=== PATIENT | female | born 1970 | race Caucasian/White ===

== ENCOUNTER 2017-10-08 13:55 | Emergency (ER) | payer OTHER ==
[~2017-10-08] VITALS: Ht 152.4 cm; Wt 75.9 kg
[2017-10-08 14:09] VITALS: TEMP 37.1; O2SAT 98; Ht 152.4 cm; Wt 75.9 kg
[2017-10-08] MEDS ORDERED: SODIUM CHLORIDE 0.9% 1000ML 1,000 ML IV STA (14:40)
[2017-10-08 15:19] LABS: BASO % 0.5 %; BASO ABS # 0.05 K/uL (0-0.2); EOS % 3.8 %; EOS ABS # 0.36 K/uL (0-0.5); HEMATOCRIT 36.4 % (37-47); HEMOGLOBIN 12.4 g/dL (12.0-16.0); IG# 0.01 K/uL (0.00-0.02); LYMPH % 27.7 %; MEAN CELL VOLUME 88.1 fL (80-100); MEAN CORPUSCULAR HGB CONC 34.1 g/dl (32-36); MEAN PLATELET VOLUME 9.8 fL (7.4-10.4); MONO % 6.6 %; MONO ABS # 0.62 K/uL (0.11-0.59); NEUT % 61.3 %; NEUT ABS # 5.75 K/uL (1.4-6.5); PLATELET COUNT 403 K/uL (130-400); RED CELL DISTRIBUTION WIDTH CV 13.4 % (11.5-14.5); RED CELL DISTRIBUTION WIDTH SD 43.3 fL (36.4-46.3); WHITE BLOOD COUNT 9.39 K/uL (4.8-10.8)
[2017-10-08 15:21] LABS: ALBUMIN 4.1 gm/dl (3.4-5.0); ALT/SGPT 20 U/L (12-78); BLOOD UREA NITROGEN 20 mg/dl (7-18); CALCIUM 8.8 mg/dl (8.5-10.1); CARBON DIOXIDE 23 mmol/L (21-32); CREATININE 1.37 mg/dl (0.60-1.20); GLUCOSE 101 mg/dl (70-99); POTASSIUM 3.2 mmol/L (3.5-5.1); SODIUM 136 mmol/L (136-145)
--- NOTE | 2017-10-08 15:24 | DIAGNOSTIC IMAGING REPORT ---
CHEST ONE VIEW PORTABLE CLINICAL HISTORY: Syncope COMPARISON STUDY: No previous studies for comparison. FINDINGS: The cardiac and mediastinal contours are normal. There is no evidence of focal pulmonary consolidation. There is no evidence of failure. No pleural effusions are visualized.[ IMPRESSION: No active disease in the chest. Electronically signed by: Narayan Daniel M.D. 10/08/2017 3:23 PM Dictated Date/Time: 10/08/2017 3:22 PM
[2017-10-08 15:26] LABS: ALKALINE PHOSPHATASE 63 U/L (45-117); AST/SGOT 13 U/L (15-37); TOTAL PROTEIN 7.9 gm/dl (6.4-8.2)
[2017-10-08] MEDS ORDERED: SUMA50TA15 PO (15:36)
[2017-10-08] MEDS ORDERED: HYDR25TA4 PO (15:36)
[2017-10-08] MEDS ORDERED: TOPI50TA16 PO (15:36)
[2017-10-08] MEDS ORDERED: ASPI-390 PO (15:36)
[2017-10-08] MEDS ORDERED: MAGNESIUM OXIDE 400 MG TAB PO STA (16:35)
[2017-10-08] MEDS ORDERED: POTASSIUM CHLORIDE 20 MEQ TABCR PO STA (16:35)
--- NOTE | 2017-10-08 16:38 | EMERGENCY ROOM VISIT NOTE ---
History First contact with patient: 14:23 Chief Complaint: SYNCOPE Stated Complaint: SYNCOPE Nursing Triage Summary: Pt arrives by ALS for syncopal episode while at work. pt reports that she was ambulating, started to see spots, eased herself to the floor and then passed out. denies injury. reports a headache, dizziness and nausea. Hx of Migraines and HTN History of Present Illness The patient is a 47 year old female who presents to the Emergency Room with complaints of a syncopal episode. The patient states that she was at work and was walking and began to not feel well. She reports that she began to see spots and felt like she was going to pass out. She sat down and did not remember what happened after that. Coworkers who witnessed her told her that she passed out. She states that when she came to, she was sweaty and clammy. She reports she has a mild headache and nausea at this time. She does have a history of migraine headaches and states that her headache now is much more mild than her migraines. This headache developed after the syncopal episode. She states that her blood pressure medications were recently changed. She was previously taking only hydrochlorothiazide, however her primary care provider added lisinopril approximately 1 week ago. The patient does admit that over the past week, she has had a few more episodes of becoming dizzy, lightheaded and feeling like she was going to pass out. This is the first time she has had a syncopal episode. The patient does admit that she did not eat anything for breakfast prior to going to work today. She denies any chest pain, shortness of breath or palpitations associated with the event. Review of Systems A complete 10 point review of systems was reviewed with the patient with pertinent positives and negatives as per history of present illness. All else were negative. Past Medical/Surgical History Medical Problems: (1) Hypertension (2) Migraines Social History Smoking Status: Never Smoker Marital Status: Housing Status: lives with family Occupation Status: employed Current/Historical Medications Scheduled Ejjtzkc-Rxihyzvqbsieu-Tkgikvev (Excedrin Migraine), 2-4 TABS PO PRN UD Hydrochlorothiazide (Hctz), 25 MG PO DAILY Sumatriptan Succinate (Imitrex), 50 MG PO PRN Topiramate (Topamax), 50 MG PO HS Physical Exam Vital Signs Date Time Temp Pulse Resp B/P (MAP) Pulse Ox O2 Delivery O2 Flow Rate FiO2 10/08/17 17:14 87 14 146/103 97 10/08/17 17:12 87 16 146/103 97 Room Air 10/08/17 16:09 77 16 140/90 100 Room Air 10/08/17 14:57 74 20 124/89 100 Room Air 10/08/17 14:53 81 16 161/98 100 Room Air 82 152/88 90 124/89 10/08/17 14:18 75 10/08/17 14:09 37.1 76 18 136/81 98 Room Air 10/08/17 14:09 98 Room Air Physical Exam VITALS: Vitals are noted on the nurse's note and reviewed by myself. Vital signs stable. GENERAL: This is a 47-year-old female, in no acute distress, nondiaphoretic, well-developed well-nourished. SKIN: The skin was without rashes. HEAD: Normocephalic atraumatic. EARS: External auditory canals clear, tympanic membranes pearly [place] without erythema or effusion bilaterally. EYES: Pupils equal round and reactive to light and accommodation. Extraocular movements intact. MOUTH: Mucous membranes moist. Tonsils are not enlarged. Pharynx without erythema or exudate. NECK: Supple without nuchal rigidity. Cervical spine is nontender. HEART: Regular rate and rhythm without murmurs gallops or rubs. LUNGS: Clear to auscultation bilaterally without wheezes, rales or rhonchi. No retractions or accessory muscle use. MUSCULOSKELETAL: Strength 5/5 throughout. NEURO: Patient was alert and oriented to person place and time. No focal neurological deficits. Medical Decision & Procedures ER Provider Diagnostic Interpretation: CHEST ONE VIEW PORTABLE CLINICAL HISTORY: Syncope COMPARISON STUDY: No previous studies for comparison. FINDINGS: The cardiac and mediastinal contours are normal. There is no evidence of focal pulmonary consolidation. There is no evidence of failure. No pleural effusions are visualized.[ IMPRESSION: No active disease in the chest. Laboratory Results 10/08/17 13:27 Red Blood Count 4.13, Mean Corpuscular Volume 88.1, Mean Corpuscular Hemoglobin 30.0, Mean Corpuscular Hemoglobin Concent 34.1, Mean Platelet Volume 9.8, Neutrophils (%) (Auto) 61.3, Lymphocytes (%) (Auto) 27.7, Monocytes (%) (Auto) 6.6, Eosinophils (%) (Auto) 3.8, Basophils (%) (Auto) 0.5, Neutrophils # (Auto) 5.75, Lymphocytes # (Auto) 2.60, Monocytes # (Auto) 0.62, Eosinophils # (Auto) 0.36, Basophils # (Auto) 0.05 10/08/17 13:27 Test 10/08/17 13:27 10/08/17 14:15 White Blood Count 9.39 K/uL (4.8-10.8) Red Blood Count 4.13 M/uL (4.2-5.4) Hemoglobin 12.4 g/dL (12.0-16.0) Hematocrit 36.4 % (37-47) Mean Corpuscular Volume 88.1 fL (80-100) Mean Corpuscular Hemoglobin 30.0 pg (25-34) Mean Corpuscular Hemoglobin Concent 34.1 g/dl (32-36) Platelet Count 403 K/uL (130-400) Mean Platelet Volume 9.8 fL (7.4-10.4) Neutrophils (%) (Auto) 61.3 % Lymphocytes (%) (Auto) 27.7 % Monocytes (%) (Auto) 6.6 % Eosinophils (%) (Auto) 3.8 % Basophils (%) (Auto) 0.5 % Neutrophils # (Auto) 5.75 K/uL (1.4-6.5) Lymphocytes # (Auto) 2.60 K/uL (1.2-3.4) Monocytes # (Auto) 0.62 K/uL (0.11-0.59) Eosinophils # (Auto) 0.36 K/uL (0-0.5) Basophils # (Auto) 0.05 K/uL (0-0.2) RDW Standard Deviation 43.3 fL (36.4-46.3) RDW Coefficient of Variation 13.4 % (11.5-14.5) Immature Granulocyte % (Auto) 0.1 % Immature Granulocyte # (Auto) 0.01 K/uL (0.00-0.02) Anion Gap 10.0 mmol/L (3-11) Est Creatinine Clear Calc Drug Dose 45.7 ml/min Estimated GFR () 52.7 Estimated GFR (Non- 45.5 BUN/Creatinine Ratio 14.5 (10-20) Calcium Level 8.8 mg/dl (8.5-10.1) Total Bilirubin 0.3 mg/dl (0.2-1) Aspartate Amino Transf (AST/SGOT) 13 U/L (15-37) Alanine Aminotransferase (ALT/SGPT) 20 U/L (12-78) Alkaline Phosphatase 63 U/L (45-117) Troponin I < 0.015 ng/ml (0-0.045) Total Protein 7.9 gm/dl (6.4-8.2) Albumin 4.1 gm/dl (3.4-5.0) Globulin 3.8 gm/dl (2.5-4.0) Albumin/Globulin Ratio 1.1 (0.9-2) Urine Color YELLOW Urine Appearance CLEAR (CLEAR) Urine pH 5.0 (4.5-7.5) Urine Specific [place] 1.027 (1.000-1.030) Urine Protein NEG (NEG) Urine Glucose (UA) NEG (NEG) Urine Ketones 1+ (NEG) Urine Occult Blood TRACE (NEG) Urine Nitrite NEG (NEG) Urine Bilirubin NEG (NEG) Urine Urobilinogen NEG (NEG) Urine Leukocyte Esterase NEG (NEG) Urine WBC (Auto) 1-5 /hpf (0-5) Urine RBC (Auto) 0-4 /hpf (0-4) Urine Hyaline Casts (Auto) 10-30 /lpf (0-5) Urine Epithelial Cells (Auto) >30 /lpf (0-5) Urine Bacteria (Auto) 1+ (NEG) Urine Test NEG (NEG) Medications Administered Medications (Trade) Dose Ordered Sig/Wilder Route Start Time Stop Time Status Last Admin Dose Admin Sodium Chloride 1,000 ml @ 999 mls/hr Q1H1M STAT IV 10/08/17 14:40 10/08/17 15:40 DC 10/08/17 14:56 999 MLS/HR Potassium Chloride (Klor-Con Tab) 40 meq NOW STAT PO 10/08/17 16:35 10/08/17 16:37 DC 10/08/17 16:56 40 MEQ Magnesium Oxide (Mag-Ox Tab) 800 mg NOW STAT PO 10/08/17 16:35 10/08/17 16:37 DC 10/08/17 16:56 800 MG ECG Per My Interpretation Indication: syncope Rate (beats per minute): 71 Rhythm: normal sinus Findings: no acute ischemic change, prolonged QT, no ectopy Comparison ECG Date: no prior available ED Course The patient was evaluated as above. Labs were drawn and IV access was obtained. Patient was medicated with 1 L normal saline solution. Patient was reevaluated and was feeling well. Findings were discussed with the patient. Patient was medicated with potassium and magnesium orally. Discharge instructions were reviewed with the patient. The patient verbalized understanding of my assessment and treatment plan and was discharged home in good condition. Medical Decision Differential diagnosis includes arrhythmia, cardiogenic syncope, vasovagal syncope, dehydration, electrolyte abnormalities, among others. The patient is a 47-year-old female who presents today complaining of a syncopal event. Patient has a mild headache at this time but is otherwise asymptomatic. Vital signs stable through the emergency department stay. Labs revealed no leukocytosis or concerning anemia. Creatinine/BUN were mildly elevated and ketones were present in the urine, suggesting dehydration. Potassium was slightly low and was repleted orally. EKG shows a normal sinus rhythm with mildly prolonged QT and no ischemic changes or ectopy. Patient's orthostatic vital signs were positive. She was recently placed on lisinopril and it is possible that this is causing some mild hypotension for her. She has had a few episodes of presyncopal symptoms this week. Patient was advised to hold the lisinopril until follow-up with her primary care provider. She was hydrated with normal saline solution in the ER and advised to increase fluids at home. She was advised to follow-up with her primary care provider within 48 hours for recheck. She was informed that she should return here immediately with any worsening or new/concerning symptoms. The patient's case was reviewed with Dr. Higuera, ED attending physician, who agreed with my assessment and treatment plan. Based on the patient's presentation and work up, I feel the patient is stable for outpatient treatment. The patient was educated to return to the emergency department for any worsening of their current condition or new/concerning symptoms. She will follow up with her PCP. Medication Reconcilliation Current Medication List: was personally reviewed by me Blood Pressure Screening Patient's blood pressure: Elevated blood pressure Blood pressure disposition: Elevated BP felt to be situational, Referred to PCP Impression Primary Impression: Syncope Departure Information Dispostion Home / Self-Care Condition GOOD Referrals Pankaj Duron D.O. (PCP) Patient Instructions My [facility] Additional Instructions You were evaluated in the emergency department for a syncopal episode. Make sure to rest and drink plenty of fluids, especially water and electrolyte drinks like Gatorade. Hold the lisinopril until you are able to follow up with your primary care provider in the office. This may be dropping your blood pressure too low. For pain control, you can use the following [id number] medicines (if >12 yo): - Regular strength (325mg/tab) Tylenol (acetaminophen) 2 tabs every 4-6 hours as needed. Do not exceed 12 tablets in a 24 hour period. Avoid taking more than 4 grams (4000 mg) of Tylenol per day. This includes any other sources of acetaminophen you may take on a regular basis. - Regular strength (200 mg/tab) Advil (ibuprofen) 1-2 tabs every 4-6 hours as needed. Do not exceed a dose of 3200 mg per day. Contact your primary care provider to schedule a follow-up appointment from today's visit. Ideally, you should be seen within 48 hours. Return to the emergency department immediately with recurrent episodes of passing out, chest pain, shortness of breath, severe headache, or any other new/ concerning symptoms. Problem Qualifiers Primary Impression: Syncope Syncope type: unspecified Qualified Codes: R55 - Syncope and collapse
[2017-10-08 17:14] VITALS: BP 146/103; PULSE 87; O2SAT 97
== END 2017-10-08 17:17 | disposition home or self-care (01) ==
LOC: EDBD 13:55 → C.EDA 13:56
DX: R55 Syncope and collapse (principal); R51 Headache; I10 Essential (primary) hypertension; Z79.899 Other long term (current) drug therapy